=== PATIENT | female | born 1955 | race Caucasian/White ===

== ENCOUNTER 2022-09-09 08:56 | Emergency (ER) | payer MEDICARE, SELFPAY ==
--- NOTE | ~2022-09-09 | XR_ITS ---
EXAMINATION: XR ankle RT min 3V, XR foot RT min 3V DATE: 09/09/2022 09:47 INDICATION: Medial and lateral right foot and ankle pain and swelling post fall 2 days prior TECHNIQUE: 1. Anteroposterior, mortise, additional oblique and lateral view of the right ankle were obtained. 2. Dorsoplantar, two oblique and lateral views of the right foot were obtained. COMPARISON: None. FINDINGS: Alignment of the right foot and ankle is normal. No acute fracture. There is flattening of the articu lar surfaces at the heads of the second metatarsal and more prominently at the third metatarsal consi stent with chronic osteonecrosis (Freiberg's infraction). Mild polyarticular osteoarthritis character ized by mild nonuniform joint space narrowing or tiny marginal osteophytes at multiple joints through out the right foot. Moderate-sized plantar calcaneal spur. Soft tissue swelling about the right ankle both medially and laterally. No ankle joint effusion. IMPRESSION: 1. Soft tissue swelling at the right ankle. No acute osseous abnormality. 2. 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 3. Mild polyarticular osteoarthritis involving multiple joints throughout the right foot. Reviewed, dictated and finalized at location L. IMPRESSION: 1. Soft tissue swelling at the right ankle. No acute osseous abnormality. 2. 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 3. Mild polyarticular osteoarthritis involving multiple joints throughout the r ight foot.
[2022-09-09 09:23] VITALS: BP 119/83; PULSE 77; RESP 16; TEMP 36.9; O2SAT 97
--- NOTE | 2022-09-09 09:39 | ED.LOWEXIN ---
HPI - Extremity Injury (Lower) General Chief Complaint: Extremity Injury, Lower Stated Complaint: rt ankle injury Time Seen by Provider: 09/09/22 09:56 Source: patient Mode of arrival: ambulatory Limitations: no limitations History of Present Illness HPI Narrative: 66-year-old female presented for complaint of right ankle pain and swelling after injury during the night. She states she got up to go to the bathroom and slipped on the floor. She denies falling to the ground. She states she twisted her ankle. She wrapped it with an Ritesh, took Tylenol, and applied ice. Pain is much worse when ambulating. She denies numbness, tingling, weakness in her foot. She has been using a walker. Related Data Allergies Allergy/AdvReac Type Severity Reaction Status Date / Time Sulfa (Sulfonamide Allergy Unknown Nausea Verified 09/09/22 09:25 Antibiotics) Review of Systems Review of Systems: CONSTITUTIONAL: Denies body aches, fever, chills EYES: Denies visual changes ENT: Denies rhinorrhea, congestion CARDIOVASCULAR: Denies chest pain, palpitations, or edema. RESPIRATORY: Denies cough or dyspnea. SKIN: Denies rash, itching, or wounds. MUSCULOSKELETAL: per hPI NEUROLOGIC: Denies headache, numbness, tingling, or weakness. All systems reviewed & are unremarkable except as noted in HPI and below PMFSH Past Medical History Medical History Closed fracture at right wrist or hand level ORIF Right radial fracture Surgical History Surgical History History of right hip replacement Family History Family History Mother Diabetes mellitus Hypertension Sibling Diabetes mellitus Hypertension Father Family history of cardiovascular disease Acute myocardial infarction, Onset Age: 67 Family history of throat cancer Grandparent Family history of malignant neoplasm of breast Other Carcinoma of colon Social History Social History Smoking status: Never smoker Alcohol intake: current Lack of Transportation: No Lack of Food: Never True Current Housing: I Have Housing Concerned About Future Housing: No Difficulty Paying Gas/Electric Bills: No Difficulty Paying for Meds: No Currently Unemployed: No Education: High School Diploma/GED Difficulty w/ Childcare or Family Care: No Comments At time of signature, I have reviewed and agree with nursing past medical, surgical, social and family history unless otherwise noted. Please see nursing chart for further information. There is no relevant family history pertinent to the presenting complaint Exam Narrative: GENERAL: Well-appearing CHEST: Speaks in full sentences. No respiratory distress. HEART: Regular rate and rhythm. Normal and equal peripheral pulses. EXTREMITIES: Right foot has normal strength and sensation, slightly limited range of motion with flexion/extension/rotation at right ankle due to pain with movement. Moderate swelling medially and laterally to ankle, minimal ecchymosis; tender across medial 1st metatarsal and 4-5 metatarsals. No open wounds, or obvious deformity; alignment normal, pulse palpable and equal bilaterally, skin warm, dry, pink. Capillary refill less than 3 seconds. SKIN: Warm, dry, no rash. NEURO: Alert and oriented x3. PSYCH: Normal mood and affect Course Course Emergency Course: Patient is aware of diagnosis, understands and agrees to treatment plan. Anticipatory guidance given. Patient agrees to follow-up as directed and is aware of reasons to seek care at the emergency department. Portions of this record may have been created with voice recognition software Level of Care: Express Care Visit Vital Signs Vital signs: Vital Signs Temperature 98.4 F 09/09/22 09:23 Pulse
== END 2022-09-09 10:18 | disposition home or self-care (01) ==
PROVIDERS: Emergency Provider Nurse Practitioner Family; PCP Physician Assistant
DX: S93.401A Sprain of unspecified ligament of right ankle, initial encounter (principal); S96.911A Strain of unspecified muscle and tendon at ankle and foot level, right foot, initial encounter; W18.40XA Slipping, tripping and stumbling without falling, unspecified, initial encounter; Z96.641 Presence of right artificial hip joint
CPT/HCPCS: 73610; 73630; 99213; G0463

== ENCOUNTER 2023-10-21 08:27 | Emergency (ER) | payer MEDICARE, SELFPAY ==
--- NOTE | ~2023-10-21 | XR_ITS ---
XR ankle LT min 3V, XR foot LT min 3V 10/21/2023 08:55 Indication: Left ankle and foot pain after trauma Procedure: 4 views left ankle and 4 views left foot Comparison: No prior studies for comparison. Findings: There is a large amount of soft tissue swelling surrounding the ankle as well as along the dorsal surface of the midfoot. There is lytic destruction of the midfoot involving the navicular and cuneiforms with overlying soft tissue swelling. Lisfranc joint intact. Osteopenia. There is partial c ollapse of the navicular. Impression: 1: Deformity of the navicular and cuneiforms with erosions and prominent adjacent soft tissue swellin g. Findings may be posttraumatic in nature, although infection/osteomyelitis should be considered in the appropriate clinical setting. Consider further evaluation with MRI with contrast. Reviewed, dictated and finalized at location B. Impression: 1: Deformity of the navicular and cuneiforms with erosions and prominent adjace nt soft tissue swelling. Findings may be posttraumatic in nature, although infe ction/osteomyelitis should be considered in the appropriate clinical setting. C onsider further evaluation with MRI with contrast. Impression: 1: Deformity of the navicular and cuneiforms with erosions and prominent adjace nt soft tissue swelling. Findings may be posttraumatic in nature, although infe ction/osteomyelitis should be considered in the appropriate clinical setting. C onsider further evaluation with MRI with contrast.
[2023-10-21 08:39] VITALS: BP 154/89; PULSE 76; RESP 16; TEMP 37.7; O2SAT 98
--- NOTE | 2023-10-21 08:42 | ED.LOWEXIN ---
HPI - Extremity Injury (Lower) General Chief Complaint: Extremity Injury, Lower Stated Complaint: Injured Ankle Time Seen by Provider: 10/21/23 08:30 Source: patient Mode of arrival: ambulatory Limitations: no limitations History of Present Illness HPI Narrative: Franco is a 68-year-old female patient presenting to the clinic today with complaints of a left ankle and foot injury. Reports that she twisted her left ankle and foot back at the end of July when attempting to get off a treadmill. Re-injured it last night when twisting it on a curb. Has medial and lateral ankle swelling with swelling to the top of her foot as well. Is having pain with bearing weight. Related Data Allergies Allergy/AdvReac Type Severity Reaction Status Date / Time Sulfa (Sulfonamide Allergy Unknown Nausea Verified 09/09/22 09:25 Antibiotics) Review of Systems Review of Systems: Pertinent positives per HPI. Patient denies any fever, chills, rash, headache, visual changes, dizziness, cough, runny nose, sore throat, shortness of breath, chest pain, palpitations, nausea, vomiting, diarrhea, constipation, abdominal pain, or any urinary issues. [facility] Past Medical History Medical History Closed fracture at right wrist or hand level ORIF Right radial fracture Surgical History Surgical History History of right hip replacement Family History Family History Mother Diabetes mellitus Hypertension Sibling Diabetes mellitus Hypertension Father Family history of cardiovascular disease Acute myocardial infarction, Onset Age: 67 Family history of throat cancer Grandparent Family history of malignant neoplasm of breast Other Carcinoma of colon Social History Social History Smoking status: Never smoker Alcohol intake: current Lack of Transportation: No Lack of Food: Never True Current Housing: I Have Housing Concerned About Future Housing: No Difficulty Paying Gas/Electric Bills: No Difficulty Paying for Meds: No Currently Unemployed: No Education: High School Diploma/GED Difficulty w/ Childcare or Family Care: No Comments At the time of my signature, I reviewed and agree with the nursing past medical, surgical, social, and family history. There is no relevant family history pertinent to the patient complaint. Exam Narrative: General: Well-developed, well nourished, in no apparent distress Head: Normocephalic, atraumatic. Cardio: Regular rate and rhythm, s1 and s2 normal, no murmur appreciated. Resp: Clear to auscultation bilaterally, no rhonchi, rales, wheezing or rubs. Musculoskeletal: No deformity, tender to palpation over the lateral and medial ankle, soft tissue swelling over the lateral and medial ankle as well as the dorsal foot, mild tenderness to palpation over the dorsal proximal foot,range of motion limited due to pain and swelling, able to dorsal flex and plantar flex against resistance, pain with valgus and varus without laxity, muscle strength strong and equal, peripheral pulse strong, no cyanosis, sitting in a wheelchair. Course Course Emergency Course: Portions of this record may have been created with voice recognition software. Level of Care: Express Care Visit Vital Signs Vital signs: Vital Signs Temperature 37.7 C H 10/21/23 08:39 Pulse Rate 76 10/21/23 08:39 Respiratory Rate 16 10/21/23 08:39 Blood Pressure 154/89 H 10/21/23 08:39 Pulse Oximetry 98 10/21/23 08:39 Temperature 37.7 C H 10/21/23 08:39 Pulse Rate 76 10/21/23 08:39 Respiratory Rate 16 10/21/23 08:39 Blood Pressure 154/89 H 10/21/23 08:39 Pulse Oximetry 98 10/21/23 08:39 Vital signs reviewed MDM - Extremity Injury (Lower) MDM Narrative
== END 2023-10-21 09:33 | disposition home or self-care (01) ==
PROVIDERS: Emergency Provider Nurse Practitioner Family; PCP Family Medicine
DX: M85.872 Other specified disorders of bone density and structure, left ankle and foot (principal); S93.402A Sprain of unspecified ligament of left ankle, initial encounter; S93.602A Unspecified sprain of left foot, initial encounter; X50.9XXA Other and unspecified overexertion or strenuous movements or postures, initial encounter; Z96.641 Presence of right artificial hip joint
CPT/HCPCS: 29515; 73610; 73630; 99213; G0463

== ENCOUNTER 2024-05-29 09:32 | Outpatient (CLI) | payer MEDICARE, SELFPAY ==
[2024-05-29 13:45] LABS: Basophils Absolute Auto 0.1 K/mm3 (0.0-0.1); Basophils Percent Auto 1.1 % (0.2-1.2); Eosinophils Absolute Auto 0.1 K/mm3 (0-0.3); Eosinophils Percent Auto 1.8 % (0-4.4); Hematocrit 42.1 % (37.0-47.0); Immature Granulocyte Absolute 0.05 K/mm3 (0.00-0.031); Immature Granulocyte Percent A 0.7 % (0-0.5); Lymphocytes Absolute Auto 1.62 K/mm3 (0.9-3.2); Lymphocytes Percent Auto 22.4 % (18.3-44.2); Mean Corpuscular HGB Conc 33.3 g/dl (32-36); Mean Corpuscular Hemoglobin 35.9 pg (26-34); Mean Corpuscular Volume 107.9 fl (80-100); Mean Platelet Volume 10.1 fl (7.4-10.4); Monocytes Absolute Auto 0.6 K/mm3 (0.1-0.6); Monocytes Percent Auto 8.3 % (2.6-8.5); Neutrophils Absolute Auto 4.8 K/mm3 (1.3-6.7); Neutrophils Percent Auto 65.7 % (45.5-73.1); Platelet Count Result 317 k/mm3 (150-375); Red Cell Distribution Width 12.8 % (11.5-14.5); White Blood Count 7.2 K/mm3 (4.5-10.0)
[2024-05-29 14:00] LABS: Alanine Aminotransferase 10 U/L (6-35); Albumin Level 4.3 g/dL (3.5-5.1); Alkaline Phosphatase 98 U/L (38-126); Anion Gap 11 mmol/L (4-12); Aspartate Amino Transferase 31 U/L (14-36); Bilirubin,Total 0.6 mg/dL (0.2-1.3); Blood Urea Nitrogen 18 mg/dL (7-17); Calcium 10.1 mg/dL (8.4-10.2); Carbon Dioxide 26 mmol/L (22-30); Chloride 98 mmol/L (98-107); Cholesterol 272 mg/dL (0-200); Estimated Glomerular Filt Rate > 60; Glucose 88 mg/dL (65-110); HDL Direct 56 mg/dL; Potassium 4.9 mmol/L (3.4-5.0); Sodium 135 mmol/L (137-145); Triglycerides 214 mg/dL (<150)
[2024-05-29 14:11] LABS: LDL Cholesterol Direct 163 mg/dL
[2024-05-29 14:13] LABS: Platelet Estimate Adequate (Adequate)
[2024-05-29 14:14] LABS: Macrocytosis 2+ (NORMAL); Schistocytes None Seen
[2024-05-29 19:31] LABS: Total Triiodothyronine (T3) 1.41 NG/ML (0.97-1.69)
--- OUTSIDE RECORDS SUMMARY | 2024-05-31 16:52 | XMS_ITS | Encounter Summary ---
Author Organization [facility] Address [address] [place] [address] Care Team Providers Care Form Setter [employer] Forms Name Role Phone Whitney Martinez MD Unavailable Sherif Nation MD Primary Care Provider [phone] Encounter Details Date Type Department Care Team (Late st Contact Info) Description 03/01/2019 [facility] Outpatient Visit [facility] Orthopedics - Radiology [address] [place] [id number] Document, Scanned Social History Tobacco Use Types Packs/Day Years Used Date Smoking Tobacco: Never Smokeless Tobacco: Never Alcohol Use Standard Drinks/Week Comments Yes 3 (1 standard drink = 0.6 oz pur e alcohol) Sex and Gender Information Value Date Recorded Sex Assigned at Female 10/20/2020 3:30 PM CDT Gender Identity Female 10/20/2020 3:30 PM CDT Sexual Orientation Straight 10/20/2020 3: 30 PM CDT documented as of this encounter Plan of Treatment Not on file documented as of this encounter Visit Diagnoses Not on filedocumented in this encounter Care Teams Form Setter [employer] Forms Relationship Specialty Start Date End Date Sherif Nation MD [address] [place] [id number] PCP - General Family Medicine 02/27/19 Whitney Martinez MD Orthopedic Surgery 02/27/19 documented as of this encounter
--- OUTSIDE RECORDS SUMMARY | 2024-05-31 16:52 | XMS_ITS | Patient Health Summary ---
Author Organization [facility] Address [address] [place] [address] Care Team Providers Care Power Nut Runner Operator Name Role Phone Whitney Martinez MD Unavailable Sherif Nation MD Primary Care Provider [phone] Note from [facility],non-owned Affiliates and Associated Physician Practices is amultiple site organization consisting of ambulatory clinics and hospital sitesin [place], [place], [place] and [place]. This disclosure is being madepursuant to the Care Everywhere program and may not contain all information available regarding this patient. Last updated 18.[facility] Allergies * Sulfa Drugs(GI Discomfort) Medications * Be aware that medications may not be up to date on this document. Alwaysverify current medications with the patient. * metoprolol succinate XL 24hr (TOPROL XL) 100 MG tablet Take 100 mg by mouth 2 times daily * lisinopril (PRINIVIL; ZESTRIL) 40 MG tablet Take 40 mg by mouth once daily * levothyroxine (SYNTHROID) 125 MCG tablet Take 125 mcg by mouth daily before breakfast * cyclobenzaprine (FLEXERIL) 10 MG tablet Take 10 mg by mouth 3 times daily as needed for Muscle Spasms * acetaminophen (TYLENOL) 325 MG tablet(Started 10/29/2020) Take 2 (two) tablets by mouth every 6 hours as needed Maximum allowable Acetaminophen amount = 4 Grams (4000 mg) / 24 hours. * citalopram (CELEXA) 10 MG tablet(Started 11/10/2020) Take 10 mg by mouth once daily * celecoxib (CELEBREX) 200 MG capsule(Started 12/28/2020) TAKE 1 CAPSULE BY MOUTH TWICE DAILY Active Problems Problem Noted Date Diagnosed Date Closed subcapital fracture o f femur, right, initial encounter 10/23/2020 Closed fracture of right distal radius 9 Hypertensive urgency 03/02/2019 Social History Tobacco Use Types Packs/Day Years Used Date Smoking Tobacco: Never Smokeless Tobacco: Never Alcohol Use Standard Drinks/Week Comments Yes 3 (1 standard drink = 0.6 oz pur e alcohol) every once in awhile Sex and Gender Information Value Date Recorded Sex Assigned at Female 10/20/2020 3:30 PM CDT Gender Identity Female 10/20/2020 3:30 PM CDT Sexual Orientation Straight 10/20/2020 3: 30 PM CDT Last Filed Vital Signs Vital Sign Reading Time Taken Comments Blood Pressure 132/83 10/29/2020 12:55 PM CDT Pulse 67 10/29/2020 12:55 PM CDT Temperature 36.5 ??C (97.7 ??F) 10/29/2020 10:58 AM C DT Respiratory Rate 16 10/29/2020 12:55 PM CDT Oxygen Saturation 91% 10/29/2020 10:58 AM CDT Inhaled Oxygen Concentration - - Weight 78.5 kg (173 lb) 10/28/2020 11:32 AM CDT Height 170.2 cm (5' 7 ) 10/28/2020 11:32 AM CDT Body Mass Index 27.1 10/28/2020 11:32 AM CDT Medical Devices Implanted Type Area Clinical Cytogenetics Director Device Identifier Shelf Expiration Date Model / Serial / Lot Peg Fx 2.2mm 16mm Rds Dist Volr Crsslck Implanted:Qty: 3 on 05/07/2019 by Whitney Martinez MD at [facility] Right: Wrist [employer] [id number] / / Peg Fx 2.2mm 18mm Rds Dist Volr Lck Smth Implanted:Qty: 2 on 05/07/2019 by Whitney Martinez MD at [facility] Right: Wrist [employer] [id number] DUPLICATE / / Peg Fx 2.2mm 20mm Rds Dist Volr Lck Smth Implanted:Qty: 2 on 05/07/2019 by Whitney Martinez MD at [facility] Right: Wrist [employer] [id number] / / Screw 2.7mm 13mm Nonlock Lopro Rds Dist Implanted:Qty: 1 on 05/07/2019 by Whitney Martinez MD at [facility] Right: Wrist [employer] [id number] / / Screw 2.7mm 14mm Lopro Nonster Bone Lf Implanted:Qty: 1 on 05/07/2019 by Whitney Martinez MD at [facility] Right: Wrist [employer] [id number] / / Screw 2.7mm 16mm Lopro Nonster Bone Lf Implanted:Qty: 1 on 05/07/2019 by Whitney Martinez MD at [facility] Right: Wrist [employer] [id number] / / Plate Lopro Crsslck Rds Rt Dist Volr 51 Implanted:Qty: 1 on 05/07/2019 by Whitney Martinez MD at [facility] Right: Wrist [employer] [id number] / / Modular Shell 52mm Implanted:Qty: 1 on 10/28/2020 by Marc Humphreys IV, MD at [facility] Right: Hip [employer] 07/08/2030 [id number] / / [id number] Acetabular Liner +4mm 36mm Implanted:Qty: 1 on 10/28/2020 by Marc Humphreys IV, MD at [facility] Right: Hip [employer] 06/10/2030 [id number] / / [id number] Stm Fem 150mm Hip 4 Lat Ofst Intgr-+ Implanted:Qty: 1 on 10/28/2020 by Marc Humphreys IV, MD at [facility] Right: Hip [employer] 05/21/2027 [id number] / / [id number] Head Fem +8mm 12/14 36mm Hip Oxnm Implanted:Qty: 1 on 10/28/2020 by Marc Humphreys IV, MD at [facility] Right: Hip [employer] 08/16/2030 [id number] / / [id number] Explanted Type Area Clinical Cytogenetics Director Device Identifier Shelf Expiration Date Model / Serial / Lot Screw 2.7mm 22mm Nonlock Lopro Crsslck Explanted:Qty: 1 on 05/07/2019 by Whitney Martinez MD at [facility] Right: Wrist [employer] [id number] / / Wire K 1.6mm Ss Fx Nonster Explanted:Qty: 3 on 05/07/2019 by Whitney Martinez MD at [facility] Right: Wrist [employer] [id number] / / Procedures * XR PELVIS W RIGHT HIP 1VW(Performed 11/17/2020) Performed for History of total hip arthroplasty, right * OT EVAL AND TREAT(Performed 10/28/2020) * FL CHRISTIE SURGERY(Performed 10/28/2020) Performed for Pain * NEURAXIAL BLOCK(Performed 10/28/2020) * CO TOTAL HIP REPLACEMENT(Performed 10/28/2020) * EKG 12-LEAD(Performed 10/24/2020) Performed for Pre-op evaluation * COMPREHENSIVE METABOLIC PANEL(Performed 10/24/2020) Performed for Pre-op evaluation * CBC W AUTO DIFFERENTIAL(Performed 10/24/2020) Performed for Pre-op evaluation * XR HIP RIGHT 2VW OR MORE(Performed 10/23/2020) Performed for Closed subcapital fracture of femur, right, initial encounter ([facility]) * MRI FEMUR RIGHT WO CONTRAST(Performed 10/17/2020) Performed for Strain of unspecified muscles, fascia and tendons at thigh level, right thigh, initial encounter * XR WRIST RIGHT 3VW OR MORE(Performed 05/17/2019) Performed for Closed Colles' fracture of right radius with malunion, subsequent encounter * IMAGING/RADIOLOGY/XRAY RESULTS ORDER(Performed 05/11/2019) * BASIC METABOLIC PANEL (CALCIUM TOTAL)(Performed 05/08/2019) Performed for Hypertensive urgency * PT EVAL AND TREAT(Performed 05/07/2019) * OT EVAL AND TREAT(Performed 05/07/2019) * XR WRIST RIGHT 2VW(Performed 05/07/2019) Performed for Closed fracture of distal end of right radius, unspecified fracture morphology, initial encounter * OPEN REDUCTION INTERNAL FIXATION (ORIF) WRIST/DISTAL RADIUS(Performed 05/07/2019) Performed for RIGHT DISTAL RADIUS FRACTURE S52.501A * PERIPHERAL BLOCK(Performed 05/07/2019) * XR WRIST RIGHT 3VW OR MORE(Performed 05/03/2019) Performed for Closed Colles' fracture of right radius with routine healing, subsequent encounter * CARDIAC EKG ORDER(Performed 03/06/2019) * CARDIAC RHYTHM STRIP ORDER(Performed 03/05/2019) * EKG 12-LEAD(Performed 03/02/2019) Performed for Hypertensive urgency * XR CHEST 1VW PORTABLE(Performed 03/02/2019) Performed for Hypertensive urgency * COMPREHENSIVE METABOLIC PANEL(Performed 03/02/2019) * CBC W AUTO DIFFERENTIAL(Performed 03/02/2019) * EKG 12-LEAD(Performed 03/02/2019) Performed for Essential hypertension, Preop examination * ED CRITICAL CARE(Performed 03/02/2019) Results * XR PELVIS W RIGHT HIP 1VW (11/17/2020 11:08 AM CDT) Anatomical Region Laterality Modality Pelvis Computed Radiogr aphy Narrative 11/17/2020 11:07 AM CDT Tabatha Peralta, RT(R) ? 11/24/2020 11:33 AM See progress notes for results Marc Humphreys IV, MD DIAGNOSTIC IMAGING O RDERABLES * FL CHRISTIE SURGERY (10/28/2020 2:30 PM CDT) Anatomical Region Laterality Modality Radiographic Misa ging 10/28/2020 3:53 PM CDT Narrative 10/28/2020 3:50 PM CDT FLUOROSCOPY: Less than 1 hour of intraprocedural fluoroscopy was utilized. No radiologist was present. *Reading Radiologist: Andres Richard on 10/28/2020 at 3:53 PM Procedure Note Andres Richard MD - 10/28/2020 FLUOROSCOPY: Less than 1 hour of intraprocedural fluoroscopy was utilized. No radiologist was present. *Reading Radiologist: Andres Richard on 10/28/2020 at 3:53 PM Marc Humphreys IV, MD FLUOROSCOPY ORDERABL ES * Neuraxial Block (10/28/2020 1:43 PM CDT) Narrative Paul Mena APRN-CRNA - 10/28/2020 1:43 PM CDT Paul Mena APRN-CRNA ? 10/28/2020 ??1:46 PM Neuraxial Block Note ?? Pre-Procedure: ?? Procedure Name: ??Neuraxial Block Patient Location: ??OR Indications: ??at surgeon's request Pre-Anesthetic Checklist: ??Patient identified, IV Checked, Risks and benefits discussed, Surgical consent verified, Monitors and equipment, Site examined, Pre-op evaluation done, Time-out performed, Informed consent obtained, Questions answered/anesthesia questions answered and Allergies reviewed Anticoagulation/ Anti-thrombosis status confirmed? ??Yes Supplemental O2: ??face mask Monitors: ??BP, continuous pluse ox, End tidal CO2 and EKG Patient Condition: ??sedated, meaningful contact maintained throughout procedure Procedure: ?? Block Type: ??Spinal Prep: ??Betadine Sterile Field: ??mask, cap/hat, sterile established and sterile gloves Approach: ??midline Spinal Block: ?? Needle Type: ??spinal needle Needle Gauge: ??27 Placement Site: ??L3-4 Number of Attempts: ??1 CSF: ??free flow, ?? aspiration before injection Spinal Local Anesthetics Used?: see anesthesia record Degree of difficulty: ??none Procedure Tolerance: ??tolerated well Sensory Level: ??T10 Motor Blockade: ??Yes Position post procedure: ??supine Vital Signs: ??Vital signs monitored and stable throughout. ??See anesthesia record for details. Start Time: ??10/28/2020 1:12 PM End Time: ??10/28/2020 1:19 PM Total Time: ??7 Staff: ?? Anesthesia Provider: ??Paul Mena APRN-CRNA ?? - ?? performed the procedure Dionne Sheets MD GENERAL ANESTHESI A ORDERABLES * EKG 12-LEAD (10/24/2020 11:19 AM CDT) Only the most recent of2 resultswithin the time period is included. Ventricular Rate 70 BPM [facility] Atrial Rate 70 BPM [facility] P-R Interval 168 ms [facility] QRS Duration ms 88 ms [facility] Q-T Interval ms 414 ms [facility] QTC Calculation (Bezet) 447 ms [facility] Calculated P [place] -25 degrees [facility] Calculated R [place] -25 degrees [facility] Calculated T [place] -2 degrees [facility] Interpretation EKG Normal sinus rhythm Normal ECG When compared with ECG of 02-MAR-2019 11:42, No significant change was found Confirmed by CECY DAO MD ([id number]) on 10/24/2020 10:45:39 PM [facility] 10/24/2020 11:1 9 AM CDT 10/24/2020 10:45 PM CDT Marii Child DO ECG ORDERABLES [facility] * (ABNORMAL) CBC W AUTO DIFFERENTIAL (10/24/2020 10:59 AM CDT) Only the most recent of2 resultswithin the time period is included. Pathologist [facility] WBC 8.8 4.4 - 10.7 x10E9/L 10/24/2020 11:11 AM CDT [facility] WBC Corrected 10/24/2020 11:11 AM CDT [facility] RBC 4.06 3.80 - 5.20 x10E12/L 10/24/2020 11:11 AM CDT [facility] Hemoglobin 14.0 12.0 - 15.6 gm/dL 10/24/2020 11:11 AM CDT [facility] Hematocrit 41.0 35.9 - 45.5 % 10/24/2020 11:11 AM CDT [facility] MCV 101.0(H) 80.7 - 98.3 fl 10/24/2020 11:11 AM CDT [facility] MCH 34.5(H) 26.7 - 34.0 pg 10/24/2020 11:11 AM CDT [facility] MCHC 34.1 30.8 - 35.9 gm/dL 10/24/2020 11:11 AM CDT [facility] Platelet Count 229 153 - 416 x10E9/L 10/24/2020 11:11 AM CDT [facility] RDW-CV 11.4(L) 12.1 - 14.9 % 10/24/2020 11:11 AM CDT [facility] MPV 9.5 9.4 - 12.9 fl 10/24/2020 11:11 AM CDT [facility] Neutrophils % 76.9(H) 44.0 - 73.0 % 10/24/2020 11:11 AM CDT [facility] Lymphocytes % 12.4(L) 20.0 - 43.0 % 10/24/2020 11:11 AM CDT [facility] Monocytes % 6.6 5.0 - 13.0 % 10/24/2020 11:11 AM CDT [facility] Eosinophils % 2.9 0.0 - 6.0 % 10/24/2020 11:11 AM CDT [facility] Basophils % 0.9 0.0 - 2.0 % 10/24/2020 11:11 AM CDT [facility] Immature Granulocytes 0.3 0 - 1 % 10/24/2020 11:11 AM CDT [facility] Neutrophil Absolute 6.74 2.01 - 7.14 x10E9/L 10/24/2020 11:11 AM CDT [facility] Lymphocytes Absolute 1.09 1.07 - 3.94 x10E9/L 10/24/2020 11:11 AM CDT [facility] Monocytes Absolute 0.58 0.26 - 1.07 x10E9/L 10/24/2020 11:11 AM CDT [facility] Eosinophils Absolute 0.25 0 - 0.47 x10E9/L 10/24/2020 11:11 AM CDT [facility] Basophils Absolute 0.08 0 - 0.08 x10E9/L 10/24/2020 11:11 AM CDT [facility] Immature Granulocytes Absolute 0.03 0.00 - 0.06 x10E9/L 10/24/2020 11:11 AM CDT [facility] nRBC Auto 0 /100 WBC 10/24/2020 11:11 AM CDT [facility] Blood BLOOD SPECIMEN / Unknown Venipuncture / Unknown 10/24/2020 10:59 AM CDT 10/24/2020 11:07 AM CDT Piper Jacome BURIAL VAULT DELIVERER AND INSTALLER-ACADEMIC HOSPITALIST LAB - HEMATO LOGY ORDERABLES [facility] [address] [place] [address] * (ABNORMAL) COMPREHENSIVE METABOLIC PANEL (10/24/2020 10:59 AM CDT) Only the most recent of2 resultswithin the time period is included. Glucose 109(H) 70 - 105 mg/dL 10/24/2020 11:23 AM CDT [facility] Sodium 136 136 - 145 mmol/L 10/24/2020 11:23 AM CDT [facility] Potassium 4.6 3.5 - 5.1 mmol/L 10/24/2020 11:23 AM CDT [facility] Chloride 103 98 - 107 mmol/L 10/24/2020 11:23 AM CDT [facility] CO2 21(L) 23 - 31 mmol/L 10/24/2020 11:23 AM CDT [facility] Calcium 10.1 8.4 - 10.4 mg/dL 10/24/2020 11:23 AM CDT [facility] Anion Gap 12 8 - 18 mmol/L 10/24/2020 11:23 AM CDT [facility] BUN 13 9.8 - 20.1 mg/dL 10/24/2020 11:23 AM CDT [facility] Creatinine 0.71 0.57 - 1.11 mg/dL 10/24/2020 11:23 AM CDT [facility] Alkaline Phosphatase 118 40 - 150 U/L 10/24/2020 11:23 AM CDT [facility] ALT 12 0 - 61 U/L 10/24/2020 11:23 AM CDT [facility] AST 14 5 - 34 U/L 10/24/2020 11:23 AM CDT [facility] Protein Total 6.5 6.4 - 8.3 gm/dL 10/24/2020 11:23 AM CDT [facility] Albumin 3.7 3.2 - 4.6 gm/dL 10/24/2020 11:23 AM CDT [facility] Bilirubin Total 0.9 0.2 - 1.2 mg/dL 10/24/2020 11:23 AM CDT [facility] eGFR by MDRD >60 >60 mL/min/1.7 3m2 10/24/2020 11:23 AM CDT [facility] eGFR by MDRD >60 >60 mL/min/1.7 3m2 10/24/2020 11:23 AM CDT [facility] Blood BLOOD SPECIMEN / Unknown Venipuncture / Unknown 10/24/2020 10:59 AM CDT 10/24/2020 11:07 AM CDT Piper Jacome APRN-ACADEMIC HOSPITALIST LAB - CHEMIS TRY ORDERABLES [facility] [address] [place] [address] * XR HIP RIGHT 2VW OR MORE (10/23/2020 1:07 PM CDT) Anatomical Region Laterality Modality Pelvis, Lower Extremity Computed Radiography Narrative 10/23/2020 1:08 PM CDT Tabatha Peralta, RT(R) ? 10/23/2020 ??2:38 PM See progress notes for results Darrick Tripp APRN-ACADEMIC HOSPITALIST DIAGNOSTIC IMAG ING ORDERABLES * MRI FEMUR RIGHT WO CONTRAST (10/17/2020 11:52 AM CDT) Anatomical Region Laterality Modality Lower Extremity Magnetic Resonan ce 10/17/2020 1:36 PM CDT Impressions 10/17/2020 4:02 PM CDT COMPLETE SUBCAPITAL RIGHT FEMORAL NECK FRACTURE WITH A VARUS DEFORMITY. RIGHT GRADE 1 ADDUCTOR MUSCLE GROUP STRAIN. Findings called to the nurse practitioner caring for the patient, Shay Durant, at 1:42 PM on 10/17/2020. Edited by Sandra Aguilar on 10/17/2020 2:02 PM *Reading Radiologist: Collins Kahn on 10/17/2020 at 4:02 PM Narrative 10/17/2020 4:02 PM CDT MRI RIGHT FEMUR WITHOUT CONTRAST CLINICAL INDICATION: Severe worsening right thigh pain and limited range of motion. Twisting injury to the right thigh a few weeks ago. COMPARISON: None available. TECHNIQUE: Multiplanar multisequence MR imaging of the right femur was performed without contrast. The left side is included for comparison on the axial and coronal sequences. FINDINGS: Complete subcapital right femoral neck fracture with a varus deformity. Portions of osteolysis have occurred at the right femoral neck compatible with subacute pathology. Moderate bone marrow edema noted at the fracture site. Moderate-sized right hip joint effusion. The mid and distal portions of the right femur are intact. No other sites of altered osseous signal. Increased T2 signal consistent with grade 1 strain involving the right adductor muscle group. No other sites of altered muscle signal. Intramuscular fascia within normal limits. No mass lesions. Neurovascular structures within normal limits. No acute tendon pathology. Visualized ligamentous and capsular components of the right hip joint intact. Procedure Note Collins Kahn MD - 10/17/2020 MRI RIGHT FEMUR WITHOUT CONTRAST CLINICAL INDICATION: Severe worsening right thigh pain and limited range of motion. Twisting injury to the right thigh a few weeks ago. COMPARISON: None available. TECHNIQUE: Multiplanar multisequence MR imaging of the right femur was performed without contrast. The left side is included for comparison on the axial and coronal sequences. FINDINGS: Complete subcapital right femoral neck fracture with a varus deformity. Portions of osteolysis have occurred at the right femoral neck compatible with subacute pathology. Moderate bone marrow edema noted at the fracture site. Moderate-sized right hip joint effusion. The mid and distal portions of the right femur are intact. No other sites of altered osseous signal. Increased T2 signal consistent with grade 1 strain involving the right adductor muscle group. No other sites of altered muscle signal. Intramuscular fascia within normal limits. No mass lesions. Neurovascular structures within normal limits. No acute tendon pathology. Visualized ligamentous and capsular components of the right hip joint intact. IMPRESSION COMPLETE SUBCAPITAL RIGHT FEMORAL NECK FRACTURE WITH A VARUS DEFORMITY. RIGHT GRADE 1 ADDUCTOR MUSCLE GROUP STRAIN. Findings called to the nurse practitioner caring for the patient, Shay Durant, at 1:42 PM on 10/17/2020. Edited by Sandra Aguilar on 10/17/2020 2:02 PM *Reading Radiologist: Collins Kahn on 10/17/2020 at 4:02 PM Provider Unknown MR ORDERABLES * XR WRIST RIGHT 3VW OR MORE (05/17/2019 10:59 AM GENERAL FOREMAN) Only the most recent of2 resultswithin the time period is included. Anatomical Region Laterality Modality Wrist / Hand Radiographic Misa ging Narrative 05/17/2019 11:00 AM GENERAL FOREMAN Iesha De Guzman L, RT(R) ? 05/17/2019 11:27 AM Please see office note for result. Whitney Martinez MD DIAGNOSTIC IMAGING O RDERABLES * IMAGING RADIOLOGY XRAY RESULTS ORDER (05/11/2019 1:55 AM GENERAL FOREMAN) Anatomical Region Laterality Modality Other Narrative 05/11/2019 1:55 AM GENERAL FOREMAN Ordered by an unspecified provider. Scanned Document IMAGING * (ABNORMAL) BASIC METABOLIC PANEL (CALCIUM TOTAL) (05/08/2019 8:56 AM GENERAL FOREMAN) Glucose 100 70 - 105 mg/dL 05/08/2019 9:24 AM GENERAL FOREMAN [facility] Sodium 137 136 - 145 mmol/L 05/08/2019 9:24 AM GENERAL FOREMAN [facility] Potassium 3.7 3.5 - 4.7 mmol/L 05/08/2019 9:24 AM GENERAL FOREMAN [facility] Chloride 104 98 - 107 mmol/L 05/08/2019 9:24 AM GENERAL FOREMAN [facility] CO2 25 23 - 31 mmol/L 05/08/2019 9:24 AM GENERAL FOREMAN [facility] Calcium 9.1 8.4 - 10.4 mg/dL 05/08/2019 9:24 AM GENERAL FOREMAN [facility] Anion Gap 8 8 - 16 mmol/L 05/08/2019 9:24 AM GENERAL FOREMAN [facility] BUN 7(L) 9.8 - 20.1 mg/dL 05/08/2019 9:24 AM GENERAL FOREMAN [facility] Creatinine 0.68 0.57 - 1.11 mg/dL 05/08/2019 9:24 AM GENERAL FOREMAN [facility] eGFR by MDRD >60 >60 mL/min/1.7 3m2 05/08/2019 9:24 AM GENERAL FOREMAN [facility] eGFR by MDRD >60 >60 mL/min/1.7 3m2 05/08/2019 9:24 AM GENERAL FOREMAN [facility] Blood BLOOD SPECIMEN / Unknown Lab Venipuncture / Unknown 05/08/2019 8:56 AM GENERAL FOREMAN 05/08/2019 9:07 AM GENERAL FOREMAN Luis E Sewell B[employer]IAL VAULT DELIVERER AND INSTALLER-ACADEMIC HOSPITALIST LAB - CHEMISTRY ORDERABLES [facility] [address] [place] [address] * XR WRIST RIGHT 2VW (05/07/2019 1:00 PM GENERAL FOREMAN) Anatomical Region Laterality Modality Wrist / Hand Radiographic Misa ging 05/07/2019 2:48 PM GENERAL FOREMAN Narrative 05/07/2019 2:51 PM GENERAL FOREMAN EXAM: ??Right wrist HISTORY: Preoperative evaluation COMPARISON: 05/03/2019 FINDINGS: 5 intraoperative views of the right wrist demonstrate placement of a anterior plate and screw device over the distal right radius with the fracture remains fracture fragments in anatomic alignment. Detail is limited. 45 seconds of fluoroscopy time was utilized for this examination. Reading Radiologist: Venron Franco MD on 05/07/2019 at 2:51 PM Procedure Note Vernon Franco MD - 05/07/2019 EXAM: Right wrist HISTORY: Preoperative evaluation COMPARISON: 05/03/2019 FINDINGS: 5 intraoperative views of the right wrist demonstrate placement of a anterior plate and screw device over the distal right radius with the fracture remains fracture fragments in anatomic alignment. Detail is limited. 45 seconds of fluoroscopy time was utilized for this examination. Reading Radiologist: Vernon Franco MD on 05/07/2019 at 2:51 PM Whitney Martinez MD DIAGNOSTIC IMAGING O RDERABLES * Peripheral Nerve Block (05/07/2019 10:25 AM GENERAL FOREMAN) Narrative Leonides Kohler, DO - 05/07/2019 10:25 AM GENERAL FOREMAN Leonides Kohler, DO ? 05/07/2019 10:28 AM Peripheral ??Nerve Block ?? Procedure: Peripheral Nerve Block Patient Location: ??Pre-op Preprocedure Section: ?? Indications: at patient's request, postop pain management and procedure for pain. Pre-anesthetic Checklist: Patient identified, IV Checked, Site examined and clear, Risks and benefits discussed, Surgical consent verified, Monitors and equipment, Time-out performed, Informed consent obtained, Pre-op evaluation done, Questions answered/anesthesia questions answered, Allergies reviewed and Removal hand/wrist jewelry Monitors: BP, Pulse Ox and EKG. Patient Condition: ??sedated, meaningful contact maintained throughout procedure Patient Position: sitting Patient Sedated? ??Nursing documentation on JUL ? Sedation Type: ??moderate ? Sedation Agents (Manual): versed Procedure Section ?? Laterality: right Block Performed: ??axillary Prep: ??Chloraprep Strerile Field: gloves and hat/cap Needle Type: ??Echogenic insultaed Needle Gauge: ??22 Needle Length: ??90 mm Catheter?No Ultrasound Guided? ?? Yes ? Technique: ??in plane ? Visualization: ??Preliminary scan performed, Important anatomical structures identified, Needle tip visualized throughout the procedure, Target identified, No intraneural or intravascular puncture occurred, Ultrasound image in chart, Local visualized surrounding nerve on ultrasound and Hydrodissection utilized Injection was made incrementally with constant monitoring and aspirations every 5 mL's Injection Assessment: ?? Slow fractionated injection Block Agents or Additives used? No Procedure Tolerance: tolerated well Assessment: completed Procedure Start Time: 05/07/2019 10:18 AM. Procedure End Time: 05/07/2019 10:22 AM. Procedure Total Time: 4 ??minutes. Staff Section ?? Anesthesia Provider: Leonides Kohler DO, Performed the procedure Leonides Kohler DO GENERAL ANESTHESIA O RDERABLES * CARDIAC EKG ORDER (03/06/2019 8:26 PM CDT) Narrative 03/06/2019 8:26 PM CDT Ordered by an unspecified provider. Scanned Document CARDIAC SERVICES ORD ERABLES * CARDIAC RHYTHM STRIP ORDER (03/05/2019 9:30 PM CDT) Narrative 03/05/2019 9:30 PM CDT Ordered by an unspecified provider. Scanned Document CARDIAC SERVICES ORD ERABLES * XR CHEST 1VW PORTABLE (03/02/2019 11:55 AM CDT) Anatomical Region Laterality Modality Chest Radiographic Misa ging 03/02/2019 12:1 6 PM CDT Impressions 03/02/2019 12:16 PM CDT No acute disease. Reading Radiologist: Viridiana Armstrong MD on 03/02/2019 at 12:16 PM Narrative 03/02/2019 12:16 PM CDT AP Portable Chest Indication: Hypertension Findings: A single portable view of the chest shows the lungs are clear. Mediastinal contour and heart size are within normal limits. Pulmonary vascularity is unremarkable. Procedure Note Viridiana Armstrong MD - 03/02/2019 AP Portable Chest Indication: Hypertension Findings: A single portable view of the chest shows the lungs are clear. Mediastinal contour and heart size are within normal limits. Pulmonary vascularity is unremarkable. IMPRESSION No acute disease. Reading Radiologist: Viridiana Armstrong MD on 03/02/2019 at 12:16 PM Luis Osman MD DIAGNOSTIC IMAGING O RDERABLES * Critical Care (03/02/2019 11:42 AM CDT) Narrative Luis Osman MD - 03/02/2019 11:42 AM CDT Luis Osman MD ? 03/02/2019 ??5:48 PM Critical Care Performed by: Luis Osman MD Authorized by: Luis Osman MD Critical care provider statement: ??Critical care time (minutes): ??35 ??Critical care time was exclusive of: ??Separately billable procedures and treating other patients ??Critical care was necessary to treat or prevent imminent or life-threatening deterioration of the following conditions: hypertensive emergency. ??Critical care was time spent personally by me on the following activities: ??Development of treatment plan with patient or surrogate, discussions with consultants, discussions with primary provider, evaluation of patient's response to treatment, examination of patient, obtaining history from patient or surrogate, ordering and performing treatments and interventions, ordering and review of laboratory studies, ordering and review of radiographic studies, re-evaluation of patient's condition, review of old charts and pulse oximetry Luis Osman MD PROCEDURE/MINOR SURG ICAL ORDERABLES Care Teams Power Nut Runner Operator Relationship Specialty Start Date End Date Sherif Nation MD [address] [place] [phone] PCP - General Family Medicine 02/27/19 Whitney Martinez MD Orthopedic Surgery 02/27/19
--- OUTSIDE RECORDS SUMMARY | 2024-05-31 16:52 | XMS_ITS | Encounter Summary ---
Author Organization [facility] [employer] Address [address] [place] [address] Care Team Providers Care Group Home Paraprofessional Name Role Phone Whitney Martinez MD Unavailable Sherif Nation MD Primary Care Provider +1- [phone] Reason for Visit * Reason Onset Date Comments Surgery Rescheduled 03/06/2019 Encounter Details Date Type Department Care Team (Late st Contact Info) Description 03/06/2019 Telephone [facility] [employer] Orthopedics [address] [facility], [facility] [address] [place] [address] Whitney Martinez MD [facility] [address] [phone] Surgery Rescheduled Social History Tobacco Use Types Packs/Day Years [...] PM CDT documented as of this encounter Miscellaneous Notes * Telephone Encounter - Manzo Hannah - 03/09/2019 8:58 AM CDT Patient is calling back to inform Dr. Martinez that her blood pressure was 200/100 this morning at 8:00am. She spoke to her PCP and was advised not to have surgery this afternoon. The patient will reachout to the surgery center to inform them as well. * Telephone Encounter - Whitney Martinez MD - 03/06/2019 1:19 PM CDT Thank you, I returned her call. * Telephone Encounter - Camila Rodriguez - 03/06/2019 1:09 PM CDT Who is calling? Self What is the reason for call? Call back to reschedule surgery. Expected Response from the Clinic? Call back documented in this encounter Plan of Treatment Not on file documented as of this encounter Visit Diagnoses Not on filedocumented in this encounter Care Teams Group Home Paraprofessional Relationship Specialty Start Date End Date Sherif Nation MD [address] [place] [phone] PCP - General Family Medicine 02/27/19 Whitney Martinez MD Orthopedic Surgery 02/27/19 documented as of this encounter
--- OUTSIDE RECORDS SUMMARY | 2024-05-31 16:52 | XMS_ITS | Referral Summary ---
Author Organization [facility] [employer] Address [address] [facility] [place] [address] Care Team Providers Care Pharmacist Helper Name Role Phone Whitney Martinez MD Unavailable Sherif Nation MD Primary Care Provider +1- [phone] Source Comments [facility],non-owned Affiliates and Associated Physician Practices is amultiple site organization consisting of ambulatory clinics and hospital sitesin [place], [place], [place] and [place]. This disclosure is being madepursuant to the Care Everywhere program and may not contain all information available regarding this patient. Last updated 18.[facility] [employer] Allergies Active Allergy Reactions Criticality Noted Date Comments Sulfa Drugs GI Discomfort 02/27/2019 Medications * Be aware that medications may not be up to date on this document. Alwaysverify current medications with the patient. Medication Sig Dispensed Refills Start Date End Date Status metoprolol succinate XL 24hr (TOPROL XL) 100 MG tablet Take 100 mg by mouth 2 times daily Active lisinopril (PRINIVIL; ZESTRIL) 40 MG tablet Take 40 mg by mouth once daily Active levothyroxine (SYNTHROID) 125 MCG tablet Take 125 mcg by mouth daily before breakfast Active cyclobenzaprine (FLEXERIL) 10 MG tablet Take 10 mg by mouth 3 times daily as needed for Muscle Spasms Active acetaminophen (TYLENOL) 325 MG tablet Take 2 (two) tablets by mouth every 6 hours as needed Maximum allowable Acetaminophen amount = 4 Grams (4000 mg) / 24 hours. 10/29/2020 Active citalopram (CELEXA) 10 MG tablet Take 10 mg by mouth once daily 11/10/2020 Active celecoxib (CELEBREX) 200 MG capsule TAKE 1 CAPSULE BY MOUTH TWICE DAILY 60 capsule 12/28/2020 Active Active Problems Problem Noted Date Diagnosed Date [...] Mass Index 27.1 10/28/2020 11:32 AM CDT Functional Status Functional Status Response Date of Assess ment Is person deaf or have serious hearing difficult y? No 10/29/2020 Is person blind or have serious difficulty seein g? No 10/29/2020 Does person have serious dif ficulty walking/climbing stairs? Yes 10/29/2020 Does person have difficulty dressing/bathing? No 10/29/2020 Does person have difficulty doing errands alone? Yes 10/29/2020 Cognitive Status Response Date of Assessm ent Does person have difficulty concentrating/remembering/making decisions? No 10/29/2020 Plan of Treatment Not on file Medical Devices Implanted Type Area Yard Coupler Device Identifier Shelf Expiration Date Model / Serial / Lot Peg Fx 2.2mm 16mm Rds Dist Volr Crsslck Implanted:Qty: 3 on 05/07/2019 by Whitney Martinez MD at [facility] Right: Wrist [employer] [id number] / / Peg Fx 2.2mm 18mm Rds Dist Volr Lck Smth Implanted:Qty: 2 on 05/07/2019 by Whitney Martinez MD at [facility] Right: Wrist [employer] [id number] DUPLICATE / / Peg Fx 2.2mm 20mm Rds Dist Volr Lck Smth Implanted:Qty: 2 on 05/07/2019 by Whitney Martinez MD at [facility] Right: Wrist [employer] [id number] / / Screw 2.7mm 13mm Nonlock Lopro Rds Dist Implanted:Qty: 1 on 05/07/2019 by Whitney Martinez MD at [facility] Right: Wrist [employer] [id number] / / Screw 2.7mm 14mm Lopro Nonster Bone Lf Implanted:Qty: 1 on 05/07/2019 by Whitney Martinez MD at [facility] Right: Wrist [employer] [id number] / / Screw 2.7mm 16mm Lopro Nonster Bone Lf Implanted:Qty: 1 on 05/07/2019 by Whitney Martinez MD at [facility] Right: Wrist [employer] [id number] / / Plate Lopro Crsslck Rds Rt Dist Volr 51 Implanted:Qty: 1 on 05/07/2019 by Whitney Martinez MD at [facility] Right: Wrist [employer] [id number] / / Modular Shell 52mm Implanted:Qty: 1 on 10/28/2020 by Marc Humphreys IV, MD at [facility] Right: Hip [employer] 07/08/2030 [id number] / / [id number] Acetabular Liner +4mm 36mm Implanted:Qty: 1 on 10/28/2020 by Marc Humphreys IV, MD at [facility] Right: Hip [employer] 06/10/2030 [id number] / / [id number] Stm Fem 150mm Hip 4 Lat Ofst Intgr-+ Implanted:Qty: 1 on 10/28/2020 by Marc Humphreys IV, MD at [facility] Right: Hip [employer] 05/21/2027 [id number] / / [id number] Head Fem +8mm /14 36mm Hip Oxnm Implanted:Qty: 1 on 10/28/2020 by Marc Humphreys IV, MD at [facility] Right: Hip [employer] 08/16/2030 [id number] / / [id number] Explanted Type Area Yard Coupler Device Identifier Shelf Expiration Date Model / Serial / Lot Screw 2.7mm 22mm Nonlock Lopro Crsslck Explanted:Qty: 1 on 05/07/2019 by Whitney Martinez MD at [facility] Right: Wrist [employer] [id number] / / Wire K 1.6mm Ss Fx Nonster Explanted:Qty: 3 on 05/07/2019 by Whitney Martinez MD at [facility] Right: Wrist [employer] [id number] / / Procedures Procedure Name Priority Date/Time Associated Diagnosis Comments COMPREHENSIVE METABOLIC PANEL STAT 10/24/2020 10:59 AM CDT Pre-op evaluation from Last 3 Months or Most Recently Relevant to Health Maintenance Results * (ABNORMAL) COMPREHENSIVE METABOLIC PANEL (10/24/2020 10:59 AM CDT) Glucose 109(H) 70 - 105 mg/dL 10/24/2020 11:23 AM CDT [facility] Sodium 136 136 - 145 mmol/L 10/24/2020 11:23 AM CDT [facility] Potassium 4.6 3.5 - 5.1 mmol/L 10/24/2020 11:23 AM CDT [facility] Chloride 103 98 - 107 mmol/L 10/24/2020 11:23 AM CDT [facility] CO2 21(L) 23 - 31 mmol/L 10/24/2020 11:23 AM CDT [facility] Calcium 10.1 8.4 - 10.4 mg/dL 10/24/2020 11:23 AM CDT [facility] Anion Gap 12 8 - 18 mmol/L 10/24/2020 11:23 AM CDT [facility] BUN 13 9.8 - 20.1 mg/dL 10/24/2020 11:23 AM CDT [facility] Creatinine 0.71 0.57 - 1.11 mg/dL 10/24/2020 11:23 AM CDT [facility] Alkaline Phosphatase 118 40 - 150 U/L 10/24/2020 11:23 AM CDT [facility] ALT 12 0 - 61 U/L 10/24/2020 11:23 AM CDT [facility] AST 14 5 - 34 U/L 10/24/2020 11:23 AM CDT [facility] Protein Total 6.5 6.4 - 8.3 gm/dL 10/24/2020 11:23 AM CDT [facility] Albumin 3.7 3.2 - 4.6 gm/dL 10/24/2020 11:23 AM CDT [facility] Bilirubin Total 0.9 0.2 - 1.2 mg/dL 10/24/2020 11:23 AM CDT [facility] eGFR by MDRD >60 >60 mL/min/1.7 3m2 10/24/2020 11:23 AM CDT [facility] eGFR by MDRD >60 >60 mL/min/1.7 3m2 10/24/2020 11:23 AM CDT [facility] Blood BLOOD SPECIMEN / Unknown Venipuncture / Unknown 10/24/2020 10:59 AM CDT 10/24/2020 11:07 AM CDT Piper Jacome CIVIL CELEBRANT-PRODUCTION SORTER LAB - CHEMIS TRY ORDERABLES [facility] [address] [place] [address] from Last 3 Months or Most Recently Relevant to Health Maintenance Advance Directives * Full Code (Latest Code Status on File) Date Activated Date Inactivated Comments 10/28/2020 2:52 PM 10/29/2020 4:45 PM * Full Code Date Activated Date Inactivated Comments 05/07/2019 4:14 PM 05/08/2019 12:45 PM * Full Code Date Activated Date Inactivated Comments 03/02/2019 2:06 PM 03/04/2019 1:20 PM * Full Code Date Activated Date Inactivated Comments 03/02/2019 1:35 PM 03/02/2019 2:06 PM Care Teams Pharmacist Helper Relationship Specialty Start Date End Date Sherif Nation MD [address] [place] [phone] PCP - General Family Medicine 02/27/19 Whitney Martinez MD Orthopedic Surgery 02/27/19
--- OUTSIDE RECORDS SUMMARY | 2024-05-31 16:52 | XMS_ITS | Encounter Summary ---
Author Organization [facility] Address [address] [place] [address] Care Team Providers Care Raw Products Director Name Role Phone Whitney Martinez MD Unavailable Sherif Nation MD Primary Care Provider +1- [phone] Reason for Visit * Reason Onset Date Comments Question 04/13/2019 Encounter Details Date Type Department Care Team (Late st Contact Info) Description 04/13/2019 Telephone [facility] Orthopedics [address] [facility], [address] [address] Whitney Martinez MD [facility] [address] [address] Question Social History Tobacco Use Types Packs/Day Years [...] encounter Miscellaneous Notes * Telephone Encounter - Camila Rodriguez - 04/13/2019 4:00 PM CST Who is calling? Self What is the reason for call? Requesting for call back in regards to surgery Expected Response from the Clinic? Call back ING CARRIER documented in this encounter Plan of Treatment Not on file documented as of this encounter Visit Diagnoses Not on filedocumented in this encounter Care Teams Raw Products Director Relationship Specialty Start Date End Date Sherif Nation MD [address] [place] [phone] PCP - General Family Medicine 02/27/19 Whitney Martinez MD Orthopedic Surgery 02/27/19 documented as of this encounter
--- OUTSIDE RECORDS SUMMARY | 2024-05-31 16:52 | XMS_ITS | Clinical Summary ---
Author Organization [facility] [employer] Address [address] [facility] [place] [address] Care Team Providers Care House Cleaner Supervisor Name Role Phone Whitney Martinez MD Unavailable Sherif Nation MD Primary Care Provider +1- [phone] Source Comments [facility] [employer] [facility],non-owned Affiliates and Associated Physician Practices is amultiple site organization consisting of ambulatory clinics and hospital sitesin [place], [place], [place] and [place]. This disclosure is being madepursuant to the Care Everywhere program and may not contain all information available regarding this patient. Last updated 18.[facility] [employer] Allergies Active Allergy Reactions Criticality Noted Date [...] Mass Index 27.1 10/28/2020 11:32 AM CDT Plan of Treatment Health Maintenance Due Date Last Done Comments BONE DENSITY TESTING 1955 COLOGUARD (AGES 45-75) - COL ON CA SCREENING 1956 COLON MONITORING 1956 COLONOSCOPY - COLON CA SCREENING 1956 CT COLONOGRAPHY - COLON CA SCREENING 1955 Colorectal Cancer Screening 1956 FIT - COLON CA SCREENING 1956 FLEX SIG - COLON CA SCREENING 1956 LIPID TESTING 1956 HEPATITIS C SCREENING 09/16/1974 DTAP/TDAP/TD VACCINES (1 - Tdap) 09/21/1975 PNEUMOCOCCAL VACCINE 50+ (1 of 1 - PCV) 2006 ZOSTER VACCINE (1 of 2) 2006 MAMMOGRAM 10/22/2017 10/23/2015 SCREENING FOR DIABETES 10/25/2023 , 05/08/2019, 03/02/2019 COVID-19 VACCINE (3 - 2023-2 5 season) 2024 07/19/2020, 06/21/2020 INFLUENZA VACCINE (#1) 2024 7, 03/09/2013, 04/25/2012 DEPRESSION SCREENING 05/09/2024 Respiratory Syncytial Virus (RSV) Vaccine Pt: or over 60 yrs (1 - 1-dose 75+ series) 09/21/2031 HEPATITIS B VACCINE Aged Out No longe r eligible based on patient's age to complete this topic HIB VACCINE Aged Out No longer eligi ble based on patient's age to complete this topic HPV VACCINE Aged Out No longer eligi ble based on patient's age to complete this topic MENINGOCOCCAL (Group B) VACCINE Aged Out No longer eligible b ased on patient's age to complete this topic MENINGOCOCCAL VACCINE Aged Out No renetta mal eligible based on patient's age to complete this topic Medical Devices Implanted Type Area Mapping Editor Device Identifier Shelf Expiration Date Model / Serial / Lot Peg Fx 2.2mm 16mm Rds Dist Volr Crsslck Implanted:Qty: 3 on 05/07/2019 by Whitney Martinez MD at [facility] Right: Wrist [employer] [id number] / / Peg Fx 2.2mm 18mm Rds Dist Volr Lck Smth Implanted:Qty: 2 on 05/07/2019 by Whitney Martinez MD at [facility] Right: Wrist [employer] [id number] DUPLICATE / / Peg Fx 2.2mm 20mm Rds Dist Volr Lck Smth Implanted:Qty: 2 on 05/07/2019 by Whitney Martinez MD at [facility] Right: Wrist [employer] [id number] / / Screw 2.7mm 13mm Nonlock Lopro Rds Dist Implanted:Qty: 1 on 05/07/2019 by Whitney Martinez MD at [facility] Right: Wrist [employer] [id number] / / Screw 2.7mm 14mm Lopro Nonster Bone Lf Implanted:Qty: 1 on 05/07/2019 by Whitney Martinez MD at [facility] Right: Wrist [employer] [id number] / / Screw 2.7mm 16mm Lopro Nonster Bone Lf Implanted:Qty: 1 on 05/07/2019 by Whitney Martinez MD at [facility] Right: Wrist [employer] [id number] / / Plate Lopro Crsslck Rds Rt Dist Volr 51 Implanted:Qty: 1 on 05/07/2019 by Whitney Martinez MD at [facility] Right: Wrist [employer] [id number] / / Modular Shell 52mm Implanted:Qty: 1 on 10/28/2020 by Marc Humphreys IV, MD at [facility] Right: Hip [employer] 07/08/2030 [id number] / / [id number] Acetabular Liner +4mm 36mm Implanted:Qty: 1 on 10/28/2020 by Marc Humphreys IV, MD at [facility] Right: Hip [employer] 06/10/2030 [id number] / / [id number] Stm Fem 150mm Hip 4 Lat Ofst Intgr-+ Implanted:Qty: 1 on 10/28/2020 by Marc Humphreys IV, MD at [facility] Right: Hip [employer] 05/21/2027 [id number] / / [id number] Head Fem +8mm /14 36mm Hip Oxnm Implanted:Qty: 1 on 10/28/2020 by Marc Humphreys IV, MD at [facility] Right: Hip [employer] 08/16/2030 [id number] / / [id number] Explanted Type Area Mapping Editor Device Identifier Shelf Expiration Date Model / Serial / Lot Screw 2.7mm 22mm Nonlock Lopro Crsslck Explanted:Qty: 1 on 05/07/2019 by Whitney Martinez MD at [facility] Right: Wrist [employer] [id number] / / Wire K 1.6mm Ss Fx Nonster Explanted:Qty: 3 on 05/07/2019 by Whitney Martinez MD at [facility] Right: Wrist [employer] [id number] / / Procedures Procedure Name Priority Date/Time [...] - 31 mmol/L 10/24/2020 11:23 AM CDT [facility] Calcium 10.1 8.4 - 10.4 mg/dL 10/24/2020 11:23 AM CDT [facility] Anion Gap 12 8 - 18 mmol/L 10/24/2020 11:23 AM CDT [facility] BUN 13 9.8 - 20.1 mg/dL 10/24/2020 11:23 AM CDT [facility] Creatinine 0.71 0.57 - 1.11 mg/dL 10/24/2020 11:23 AM CDT [facility] Alkaline Phosphatase 118 40 - 150 U/L 10/24/2020 11:23 AM CDT [facility] ALT 12 0 - 61 U/L 10/24/2020 11:23 AM CDT [facility] AST 14 5 - 34 U/L 10/24/2020 11:23 AM CDT [facility] Protein Total 6.5 6.4 - 8.3 gm/dL 10/24/2020 11:23 AM CDT [facility] Albumin 3.7 3.2 - 4.6 gm/dL 10/24/2020 11:23 AM CDT [facility] Bilirubin Total 0.9 0.2 - 1.2 mg/dL 10/24/2020 11:23 AM CDT [facility] eGFR by MDRD >60 >60 mL/min/1.7 2 10/24/2020 11:23 AM CDT [facility] eGFR by MDRD >60 >60 mL/min/1.7 2 10/24/2020 11:23 AM CDT [facility] Blood BLOOD SPECIMEN / Unknown Venipuncture / Unknown 10/24/2020 10:59 AM CDT 10/24/2020 11:07 AM CDT Piper Jacome SIGN POSTER-BLOOD BANK TECHNICIAN LAB - CHEMIS TRY ORDERABLES [facility] [address] [place] [id number] from Last 3 Months or Most Recently [...] 1:35 PM 03/02/2019 2:06 PM Care Teams House Cleaner Supervisor Relationship Specialty Start Date End Date Sherif Nation MD [address] [place] [phone] PCP - General Family Medicine 02/27/19 Whitney Martinez MD Orthopedic Surgery 02/27/19
--- OUTSIDE RECORDS SUMMARY | 2024-05-31 16:52 | XMS_ITS | Encounter Summary ---
Author Organization [facility] Address [address] [place] [address] Care Team Providers Care Farm Management Agent Name Role Phone Whitney Martinez MD Unavailable Sherif Nation MD Primary Care Provider +1- [phone] Reason for Visit * Reason Onset Date Comments Surgery Scheduling 04/24/2019 Encounter Details Date Type Department Care Team (Late st Contact Info) Description 04/24/2019 Telephone [facility] Orthopedics [address] [facility], [facility] [address] [place] [address] Whitney Martinez MD [facility] [address] [phone] Surgery Scheduling Social History Tobacco Use Types Packs/Day Years [...] encounter Miscellaneous Notes * Telephone Encounter - Leonor Lundy - 04/25/2019 9:40 AM CST Pt returned Jacob's call. Please call her D SERVICE REPRESENTATIVE * Telephone Encounter - Leonor Lundy - 04/24/2019 11:23 AM CST Who is calling? Self What is the reason for call? Pt called to schedule her surgery, her labs were normal Expected Response from the Clinic? Please call D SERVICE REPRESENTATIVE documented in this encounter Plan of Treatment Not on file documented as of this encounter Visit Diagnoses Not on filedocumented in this encounter Care Teams Farm Management Agent Relationship Specialty Start Date End Date Sherif Nation MD [address] [place] [phone] PCP - General Family Medicine 02/27/19 Whitney Martinez MD Orthopedic Surgery 02/27/19 documented as of this encounter
== END 2024-05-29 09:33 | disposition home or self-care (01) ==
LOC: ANHGOSHLAB 09:34
PROVIDERS: PCP Family Medicine; Visit Provider Nurse Practitioner Family
DX: E78.5 Hyperlipidemia, unspecified (principal); E03.9 Hypothyroidism, unspecified; I10 Essential (primary) hypertension; F41.1 Generalized anxiety disorder
CPT/HCPCS: 36415; 80053; 80061; 84439; 84443; 84480; 85025

== ENCOUNTER 2025-04-14 08:22 | Emergency (ER) | payer MEDICARE, SELFPAY ==
[2025-04-14] VITALS (27 sets, daily range): BP systolic 120–166; BP diastolic 80–110; PULSE 81–103; RESP 14–28; TEMP 36.8; O2SAT 95–100
--- NOTE | ~2025-04-14 | XR_ITS ---
Examination: XR knee RT 3V Clinical History: trauma Comparison: None Technique: 3 views right knee Findings/impression: 1. No acute fracture, dislocation, or effusion right knee. 2. Tricompartmental joint space narrowing, with marginal osteophytes. Reviewed, dictated and finalized at location R. F MARKETING OFFICER
--- NOTE | ~2025-04-14 | XR_ITS ---
Examination: XR ankle RT min 3V Clinical History: trauma, fall Comparison: 09/09/2022 Technique: 3 views right ankle Findings/impression: 1. Tiny avulsion fracture medial malleolus. 2. No other fracture identified. 3. Joint effusion. 4. Soft tissue swelling. Reviewed, dictated and finalized at location R. NSED ACUPUNCTURIST
--- NOTE | ~2025-04-14 | XR_ITS ---
Lumbar spine series Indication: Back pain Comparison: CT abdomen pelvis 04/19/2019 Technique: 3 views lumbar spine Findings: 6 nonrib-bearing lumbar-type vertebral bodies. No acute fracture identified. No listhesis. Multilevel disc disease. Moderate degenerative changes. SI joints congruent. Sacrum intact. IMPRESSION: 1. No acute findings identified but degenerative changes, alignment, and osteopenia could obscure subtle abnormality. Reviewed, dictated and finalized at location R. MIXER IMPRESSION: 1. No acute findings identified but degenerative changes, alignment, and osteo penia could obscure subtle abnormality.
--- OUTSIDE RECORDS SUMMARY | 2025-04-14 09:19 | XMS_ITS | Clinical Summary ---
Author Organization [facility] Address [address] [place] [address] Care Team Providers Care Filling Hauler Weaving Name Role Phone Sherif Nation MD Primary Care Provider +1 -[phone] Social History Tobacco Use Types Packs/Day Years Used Date Smoking Tobacco: Never Assessed Comments Unknown Sex and Gender Information Value Date Recorded Sex Assigned at Not on file Legal Sex Female 12:10 PM VELVET CUTTER Gender Identity Not on file Sexual Orientation Not on file Plan of Treatment Health Maintenance Due Date Last Done Comments Colon Cancer Screening-Colonoscopy 1955 Depression Screening 1956 Fall Risk Assessment 1955 Hepatitis C Screening 1956 Osteoporosis Screening-Bone Density Scan 1956 Hepatitis B Screening 1974 Pneumococcal vaccine 65+ (1 of 1 - PCV) 2006 Zoster Vaccine (1 of 2) 2006 Well Visit 65+ 2021 Covid-19 Vaccine (4 - 2024-2 6 season) 2025 04/18/2021, 07/19/2020, 06/21/2020 Influenza Vaccine (#1) 2025 03/12/2021 Breast Cancer Screening-Mammogram 07/04/2025 07/04/2024, 02/23/2023, 07/16/2021, Additional history exists DTaP/Tdap/Td Vaccine (2 - Td or Tdap) 10/22/2030 10/22/2020 Procedures Procedure Name Priority Date/Time Associated Diagnosis Comments SCREENING MAMMOGRAM BILATERAL W GRAYSON Schedule Routine, Read Routine (OP Routine) 07/04/2024 9:35 AM VELVET CUTTER Screening mammogram, encounter for from Last 3 Months or Most Recently Relevant to Health Maintenance Results * Screening Mammogram Bilateral W Grayson (07/04/2024 9:35 AM VELVET CUTTER) Anatomical Region Laterality Modality Breast Bilateral Mammography Narrative 07/05/2024 12:45 PM VELVET CUTTER Examination: Screening Mammogram Bilateral W Grayson: 07/04/24 Prior Study Comparisons: Relevant prior studies available at the time of interpretation were reviewed. Findings: Bilateral There is no suspicious mass, calcification, or distortion in either breast. There are scattered areas of fibroglandular density. The patient will be notified of results by letter. Impression: BI-RADS ATLAS category (overall): 2 - Benign Routine Screening Mammogram in 1 Yr is recommended for bilateral Overall Assessment: 2 - Benign us Self Screening Mammogram IMG MAMMO PROCEDURES Fi nal Result from Last 3 Months or Most Recently Relevant to Health Maintenance Insurance [facility] MEDICARE [facility] MEDICARE [facility] Care Teams Filling Hauler Weaving Relationship Specialty Start Date End Date Sherif Nation MD PCP - General 12/03/16
--- OUTSIDE RECORDS SUMMARY | 2025-04-14 09:19 | XMS_ITS | Encounter Summary ---
Author Organization [facility] Address [address] [place] [address] Care Team Providers Care Insurance Investigator Name Role Phone Whitney Martinez MD Unavailable Sherif Nation MD Primary Care Provider [phone]- [phone] Reason for Visit * Reason Onset Date Comments Question 04/13/2019 Encounter Details Date Type Department Care Team (Late st Contact Info) Description 04/13/2019 Telephone [email or web address] Orthopedics [address] [facility], [address] [address] Whitney Martinez MD [facility] [address] [address] Question Social History Tobacco Use Types Packs/Day Years Used Date Smoking Tobacco: Never Smokeless Tobacco: Never Alcohol Use Standard Drinks/Week Comments Yes 3 (1 standard drink = 0.6 oz pur e alcohol) Comments Unknown Sex and Gender Information Value Date Recorded Sex Assigned at Female 10/20/2020 3:30 PM CDT Legal Sex Female 6:07 AM MANAGER CONTRACT Gender Identity Female 10/20/2020 3:30 PM CDT Sexual Orientation Straight 10/20/2020 3: 30 PM CDT documented as of this encounter Miscellaneous Notes * Telephone Encounter - Camila Rodriguez - 04/13/2019 4:00 PM CST Who is calling? Self What is the reason for call? Requesting for call back in regards to surgery Expected Response from the Clinic? Call back GER CONTRACT documented in this encounter Plan of Treatment Not on file documented as of this encounter Visit Diagnoses Not on filedocumented in this encounter Care Teams Insurance Investigator Relationship Specialty Start Date End Date Sherif Nation MD [address] [place] [phone] PCP - General Family Medicine 02/27/19 Whitney Martinez MD Orthopedic Surgery 02/27/19 documented as of this encounter
--- OUTSIDE RECORDS SUMMARY | 2025-04-14 09:19 | XMS_ITS | Clinical Summary ---
Author Organization [facility] Address [address] [place] [address] Care Team Providers Care Steward/Stewardess Tourist Class Name Role Phone Whitney Martinez MD Unavailable Sherif Nation MD Primary Care Provider [phone]- [phone] Source Comments [facility],non-owned Affiliates and Associated Physician Practices is amultiple site organization consisting of ambulatory clinics and hospital sitesin [place], [place], [place] and [place]. This disclosure is being madepursuant to the Care Everywhere program and may not contain all information available regarding this patient. Last updated 18.[facility] Allergies Active Allergy Reactions Criticality Noted Date Comments Sulfa Drugs GI Discomfort 02/27/2019 Medications * Be aware that medications may not be up to date on this document. Alwaysverify current medications with the patient. metoprolol succinate XL 24hr (TOPROL XL) 100 MG tablet Take 100 mg by mouth 2 times daily Active lisinopril (PRINIVIL; ZESTRIL) 40 MG tablet Take 40 mg by mouth once daily Active levothyroxine (SYNTHROID) 125 MCG tablet Take 125 mcg by mouth daily before breakfast Active cyclobenzaprin e (FLEXERIL) 10 MG tablet Take 10 mg by mouth 3 times daily as needed for Muscle Spasms Active acetaminophen (TYLENOL) 325 MG tablet Take 2 (two) tablets by mouth every 6 hours as needed Maximum allowable Acetaminophen amount = 4 Grams (4000 mg) / 24 hours. 1 Active citalopram (CELEXA) 10 MG tablet Take 10 mg by mouth once daily 1 Active celecoxib (CELEBREX) 200 MG capsule TAKE 1 CAPSULE BY MOUTH TWICE DAILY 60 capsule 1 Active Active Problems Problem Noted Date Diagnosed Date Closed subcapital fracture o f femur, right, initial encounter 10/23/2020 Closed fracture of right distal radius 9 Hypertensive urgency 03/02/2019 Social History Tobacco Use Types Packs/Day Years Used Date Smoking Tobacco: Never Smokeless Tobacco: Never Alcohol Use Standard Drinks/Week Comments Yes 3 (1 standard drink = 0.6 oz pur e alcohol) every once in awhile Comments Unknown Sex and Gender Information Value Date Recorded Sex Assigned at Female 10/20/2020 3:30 PM CDT Legal Sex Female 6:07 AM CLINICAL INFORMATICS MANAGER Gender Identity Female 10/20/2020 3:30 PM CDT Sexual Orientation Straight 10/20/2020 3: 30 PM CDT Last Filed Vital Signs Vital Sign Reading Time Taken Comments Blood Pressure 132/83 10/29/2020 12:55 PM CDT Pulse 67 10/29/2020 12:55 PM CDT Temperature 36.5 C (97.7 F) 10/29/2020 10:58 AM CDT Respiratory Rate 16 10/29/2020 12:55 PM CDT Oxygen Saturation 91% 10/29/2020 10:58 AM CDT Inhaled Oxygen Concentration - - Weight 78.5 kg (173 lb) 10/28/2020 11:32 AM CDT Height 170.2 cm (5' 7) 10/28/2020 11:32 AM CDT Body Mass Index [...] MAMMOGRAM 10/22/2017 10/23/2015 SCREENING FOR DIABETES 10/25/2023 1, 05/08/2019, 03/02/2019 DEPRESSION SCREENING 05/09/2024 COVID-19 VACCINE (3 - 2024-2 6 season) 2025 07/19/2020, 06/21/2020 INFLUENZA VACCINE (#1) 2025 7, 03/09/2013, 04/25/2012 Respiratory Syncytial Virus (RSV) Vaccine Pt: or [...] complete this topic MENINGOCOCCAL (Group B) VACCINE SHARED DECISION-MAKING Aged Out No longer eligible based on patient's age to complete this topic MENINGOCOCCAL GROUPS A/C/Y/W VACCINE Aged Out No longer eligible b ased on patient's age to complete this topic Medical Devices Implanted Type Area Ripening Room Hand Device Identifier Shelf Expiration Date Model / Serial / Lot Peg Fx 2.2mm 16mm Rds Dist Volr Crsslck Implanted:Qty: 3 on 05/07/2019 by Whitney Martinez MD at [facility] Right: Wrist [employer] [id number] / / Peg Fx 2.2mm 18mm Rds Dist Volr Lck Smth Implanted:Qty: 2 on 05/07/2019 by Whitney Martinez MD at [facility] Right: Wrist [employer] [id number] DUPLICATE / / Peg Fx 2.2mm 20mm Rds Dist Volr Lck Smth Implanted:Qty: 2 on 05/07/2019 by Whitney Martinez MD at [facility] Right: Wrist [employer] [id number] / / Screw 2.7mm 13mm Nonlock Lopro Rds Dist Implanted:Qty: 1 on 05/07/2019 by Whitney Martinez MD at [facility] Right: Wrist [employer] [id number] / / Screw 2.7mm 14mm Lopro Nonster Bone Lf Implanted:Qty: 1 on 05/07/2019 by Whitney Martinez MD at [facility] Right: Wrist [employer] [id number] / / Screw 2.7mm 16mm Lopro Nonster Bone Lf Implanted:Qty: 1 on 05/07/2019 by Whitney Martinez MD at [facility] Right: Wrist [employer] [id number] / / Plate Lopro Crsslck Rds Rt Dist Volr 51 Implanted:Qty: 1 on 05/07/2019 by Whitney Martinez MD at [facility] Right: Wrist [employer] [id number] / / Modular Shell 52mm Implanted:Qty: 1 on 10/28/2020 by Marc Humphreys IV, MD at [facility] Right: Hip [employer] 07/08/2030 [id number] / / [id number] Acetabular Liner +4mm 36mm Implanted:Qty: 1 on 10/28/2020 by Marc Humphreys IV, MD at [facility] Right: Hip [employer] 06/10/2030 [id number] / / [id number] Stm Fem 150mm Hip 4 Lat Ofst Intgr-+ Implanted:Qty: 1 on 10/28/2020 by Marc Humphreys IV, MD at [facility] Right: Hip [employer] 05/21/2027 [id number] / / [id number] Head Fem +8mm 12/14 36mm Hip Oxnm Implanted:Qty: 1 on 10/28/2020 by Marc Humphreys IV, MD at [facility] Right: Hip [employer] 08/16/2030 [id number] / / [id number] Explanted Type Area Ripening Room Hand Device Identifier Shelf Expiration Date Model / Serial / Lot Screw 2.7mm 22mm Nonlock Lopro Crsslck Explanted:Qty: 1 on 05/07/2019 by Whitney Martinez MD at [facility] Right: Wrist [employer] [id number] / / Wire K 1.6mm Ss Fx Nonster Explanted:Qty: 3 on 05/07/2019 by Whitney Martinez MD at [facility] Right: Wrist [employer] [id number] / / Procedures Procedure Name Priority Date/Time [...] >60 mL/min/1.7 3m2 10/24/2020 11:23 AM CDT [facility] eGFR by MDRD >60 >60 mL/min/1.7 3m2 10/24/2020 11:23 AM CDT [facility] Blood BLOOD SPECIMEN / Unknown Venipuncture / Unknown 10/24/2020 10:59 AM CDT 10/24/2020 11:07 AM CDT Piper Jacome WOMEN'S ACTIVITIES ADVISER-HATCHERY MANAGER LAB - CHEMISTRY TREVER CHAVEZ Final Result [facility] [address] [place] [address] from Last 3 Months or Most Recently Relevant to Health Maintenance Insurance ANTH Advance Directives * Full Code (Latest Code [...] 1:35 PM 03/02/2019 2:06 PM Care Teams Steward/Stewardess Tourist Class Relationship Specialty Start Date End Date Sherif Nation MD [address] [place] [phone] PCP - General Family Medicine 02/27/19 Whitney Martinez MD Orthopedic Surgery 02/27/19
--- OUTSIDE RECORDS SUMMARY | 2025-04-14 09:19 | XMS_ITS | Encounter Summary ---
Author Organization [facility] Address [address] [place] [address] Care Team Providers Care Party Host Name Role Phone Whitney Martinez MD Unavailable Sherif Nation MD Primary Care Provider +1- [phone] Reason for Visit * Reason Onset Date Comments Surgery Scheduling 04/24/2019 Encounter Details Date Type Department Care Team (Late st Contact Info) Description 04/24/[address] [facility] Orthopedics [address] [facility], [facility] [address] [place] [address] Whitney Martinez MD [facility] [address] [address] Surgery Scheduling Social History Tobacco Use Types Packs/Day Years Used Date Smoking Tobacco: Never Smokeless Tobacco: Never Alcohol Use Standard Drinks/Week Comments Yes 3 (1 standard drink = 0.6 oz pur e alcohol) Comments Unknown Sex and Gender Information Value Date Recorded Sex Assigned at Female 10/20/2020 3:30 PM CDT Legal Sex Female 6:07 AM SORTER/ASSAY TECH Gender Identity Female 10/20/2020 3:30 PM CDT Sexual Orientation Straight 10/20/2020 3: 30 PM CDT documented as of this encounter Miscellaneous Notes * Telephone Encounter - Leonor Lundy - 04/25/2019 9:40 AM CST Pt returned Jacob's call. Please call her ER/ASSAY TECH * Telephone Encounter - Leonor Lundy R - 04/24/2019 11:23 AM CST Who is calling? Self What is the reason for call? Pt called to schedule her surgery, her labs were normal Expected Response from the Clinic? Please call ER/ASSAY TECH documented in this encounter Plan of Treatment Not on file documented as of this encounter Visit Diagnoses Not on filedocumented in this encounter Care Teams Party Host Relationship Specialty Start Date End Date Sherif Nation MD [address] [place] [phone] PCP - General Family Medicine 02/27/19 Whitney Martinez MD Orthopedic Surgery 02/27/19 documented as of this encounter
--- OUTSIDE RECORDS SUMMARY | 2025-04-14 09:19 | XMS_ITS | Encounter Summary ---
Author Organization [facility] Address [address] [facility] [address] Care Team Providers Care Rebar Bender Name Role Phone Whitney Martinez MD Unavailable Sherif Nation MD Primary Care Provider +1- [phone] Reason for Visit * Reason Onset Date Comments Surgery Rescheduled 03/06/2019 Encounter Details Date Type Department Care Team (Late st Contact Info) Description 03/06/2019 Telephone [facility] [employer] Orthopedics [address] [facility], [facility] [address] [place] [address] Whitney Martinez MD [facility] [address] [phone] Surgery Rescheduled Social History Tobacco Use Types Packs/Day Years Used Date Smoking Tobacco: Never Smokeless Tobacco: Never Alcohol Use Standard Drinks/Week Comments Yes 3 (1 standard drink = 0.6 oz pur e alcohol) Comments Unknown Sex and Gender Information Value Date Recorded Sex Assigned at Female 10/20/2020 3:30 PM CDT Legal Sex Female 6:07 AM PROPULSION ENGINEER Gender Identity Female 10/20/2020 3:30 PM CDT Sexual Orientation Straight 10/20/2020 3: 30 PM CDT documented as of this encounter Functional Status * In the past 30 days, have you wished you were or wished you could go to sleep and not wake up? Answer Date of Assessment Author No 03/07/2019 2:36 PM CDT Mary Oleary RN * In the past 30 days, have you actually had any thoughts about killing yourself? Answer Date of Assessment Author No 03/07/2019 2:36 PM CDT Mary Oleary RN documented as of this encounter Miscellaneous Notes * Telephone Encounter - Hannah Manzo - 03/09/2019 8:58 AM CDT Patient is [...] on filedocumented in this encounter Care Teams Rebar Bender Relationship Specialty Start Date End Date Sherif Nation MD [address] [place] [phone] PCP - General Family Medicine 02/27/19 Whitney Martinez MD Orthopedic Surgery 02/27/19 documented as of this encounter
--- OUTSIDE RECORDS SUMMARY | 2025-04-14 09:19 | XMS_ITS | Encounter Summary ---
Author Organization [facility] Address [address] [place] [address] Care Team Providers Care Business Process Architect Name Role Phone Whitney Martinez MD Unavailable Sherif Nation MD Primary Care Provider +1- [phone] Encounter Details Date Type Department Care Team (Late st Contact Info) Description 03/01/2019 [facility] Outpatient Visit [facility] Orthopedics - Radiology [address] [place] [address] [place] [address] Document, Scanned Social History Tobacco Use Types Packs/Day Years Used Date Smoking Tobacco: Never Smokeless Tobacco: Never Alcohol Use Standard Drinks/Week Comments Yes 3 (1 standard drink = 0.6 oz pur e alcohol) Comments Unknown Sex and Gender Information Value Date Recorded Sex Assigned at Female 10/20/2020 3:30 PM CDT Legal Sex Female 6:07 AM DIRECTOR CRAFT CENTER Gender Identity Female 10/20/2020 3:30 PM CDT Sexual Orientation Straight 10/20/2020 3: 30 PM CDT documented as of this encounter Functional Status * In the past 30 days, have you wished you were or wished you could go to sleep and not wake up? Answer Date of Assessment Author No 03/02/2019 7:54 PM CDT Enedelia Kathleen RN * In the past 30 days, have you actually had any thoughts about killing yourself? Answer Date of Assessment Author No 03/02/2019 7:54 PM CDT Enedelia Kathleen RN documented as of this encounter Plan of Treatment Not on file documented as of this encounter Visit Diagnoses Not on filedocumented in this encounter Care Teams Business Process Architect Relationship Specialty Start Date End Date Sherif Nation MD [address] [place] [phone] PCP - General Family Medicine 02/27/19 Whitney Martinez MD Orthopedic Surgery 02/27/19 documented as of this encounter
--- OUTSIDE RECORDS SUMMARY | 2025-04-14 09:19 | XMS_ITS | Clinical Summary ---
Author Organization [facility] Address [address] [place] [address] Phone Care Team Providers Care Donkey Doctor Name Role Phone Unavailable Primary Care Provider Unavailabl e Immunizations Immunization Administration Dates Next Due (SPIKEVAX) (12 YRS UP PRIMAR Y SERIES) COVID-19 VACCINE - MRNA-1273(PF) 100 MCG/0.5 ML IM SUSP 07/19/2020,06/21/2020 Social History Tobacco Use Types Packs/Day Years Used Date Smoking Tobacco: Never Assessed Comments Unknown Sex and Gender Information Value Date Recorded Sex Assigned at Not on file Legal Sex Female 11:45 AM MARKING CLERK Gender Identity Not on file Sexual Orientation Not on file Plan of Treatment Health Maintenance Due Date Last Done Comments DTAP/TDAP/TD VACCINES (1 - Tdap) 09/21/1975 COLORECTAL SCREENING 2001 Colorectal Cancer Screening 2001 FIT-DNA Q 3 years 2001 FIT/FOBT Q 1 year 2001 Flex Sig/CT Colonography Q 5 years 2001 PNEUMOCOCCAL VACCINE 50+ YEA RS (1 of 1 - PCV) 2006 ZOSTER VACCINE (1 of 2) 2006 BREAST CANCER SCREENING 10/22/2016 10/23/2015 OSTEOPOROSIS SCREENING 2021 INFLUENZA VACCINE (#1) 2024 COVID-19 Vaccine (3 - season) 2025, 06/21/2020 RSV VACCINE (60+ or ) (1 - 1-dose 75+ series) 09/21/2031 Insurance BCBS [facility]
--- NOTE | 2025-04-14 10:18 | ED_ITS ---
HPI - General Adult General Chief complaint: Back Pain/Injury Stated complaint: back pain Time Seen by Provider: 04/14/25 08:25 History of Present Illness HPI narrative: 61-year-old female presents emergency department for evaluation for multiple complaints. Patient did have a ground level fall approximately 2 weeks ago. Patient did injure her right ankle at that time. Patient did not seek follow-up at that time. Patient has been wearing a walking boot on the affected right ankle since then. Patient states the walking boot does help. Patient then injured her right knee had a separate incident and patient is wearing any brace the right knee as well. Patient began having muscle spasms of her lower back last night but patient states that she was not having any acute pain after the initial falls. Patient denies any loss of bowel or bladder control. Patient denies any associated numbness or weakness. Patient reports does have follow-up on Tuesday scheduled for the ankle injury but due to the worsening pain of the lower back she sought evaluation today. Patient denies striking head denies any loss of consciousness. Related Data Allergies Allergy/AdvReac Type Severity Reaction Status Date / Time Sulfa (Sulfonamide Allergy Unknown Nausea Verified 04/14/25 08:43 Antibiotics) Review of Systems Review of Systems: All systems reviewed & are unremarkable except as noted in HPI and below PMFSH Past Medical History Medical History Arthritis of foot, left, degenerative Closed fracture at right wrist or hand level ORIF Right radial fracture Surgical History Surgical History History of surgery on wrist History of right hip replacement Family History Family History Mother Diabetes mellitus Hypertension Sibling Diabetes mellitus Hypertension Father Family history of cardiovascular disease Acute myocardial infarction, Onset Age: 67 Family history of throat cancer Grandparent Family history of malignant neoplasm of breast Other Carcinoma of colon Social History Social History (Updated 05/29/24 @ 08:56 by Piper Nuñez MA) Social History: caffeine use Smoking status: Never smoker Alcohol intake: current Drinks per week: 4 Substance use: never Substance use type: does not use Lack of Transportation: No Lack of Food: Never True Current Housing: I Have Housing Concerned About Future Housing: No Difficulty Paying Gas/Electric Bills: No Difficulty Paying for Meds: No Currently Unemployed: No Education: High School Diploma/GED Difficulty w/ Childcare or Family Care: No Occupation/Education: retired Gender identity (if verbalized by the patient): Female Exam Narrative: APPEARANCE: Well appearing, no pain, no distress, well-nourished. HEAD: normocephalic, atraumatic. EYES: PERRLA/EOMI, conjunctivae clear. NOSE: Normal no drainage EARS:TMS clear with good light reflex. THROAT: Pharynx clear, no exudate. NECK: Supple. No adenopathy, no masses. RESPIRATORY: Airway patent, respirations nonlabored. Clear to auscultation bilaterally, no rales, rhonchi, wheezing. CARDIOVASCULAR: Regular rate and rhythm without murmurs rubs or gallops. ABDOMINAL: Soft, nontender, nondistended, normal bowel sounds MUSCULOSKELETAL: Tenderness of the right lateral ankle. NEURO: Alert. Cranial nerves II through XII intact. Good gait. Good coordination SKIN: Warm, dry. Normal Color Course Vital Signs Vital signs: Vital Signs Pulse Rate 103 H 04/14/25 08:37 Respiratory Rate 28 H 04/14/25 08:37 Blood Pressure 149/110 H 04/14/25 08:37 Pulse Oximetry 100 04/14/25 08:37 Temperature 98.2 F 04/14/25 08:40 Pulse Rate 85 04/14/25 12:43 Respiratory Rate 20 04/14/25 12:43 Blood Pressure 134/92 H 04/14/25 12:43 Pulse Oximetry 99 04/14/25 12:43 Oxygen Delivery Room Air 04/14/25 08:40 [facility] Narrative Medical decision making narrative: 61-year-old female presents emergency department for evaluation for lower back pain, right ankle pain and right knee pain. Lumbar x-ray was negative, knee x- ray was negative. Ankle x-ray does show a medial malleolus avulsion fracture. Patient is already wearing a walking boot from home and injuries approximately 2-week-old. Patient was provided additional crutches for limited weight- bearing. Patient states she does have follow-up scheduled with Orthopedics, Dr. Schmidt. Differential Diagnosis Differential Diagnosis: Knee fracture, hip fracture, lumbar fracture, sciatica, muscular strain Imaging Data Radiologist's impression: ITS Impressions Lumbar Spine X-Ray 04/14/25 11:47 IMPRESSION: 1. No acute findings identified but degenerative changes, alignment, and osteopenia could obscure subtle abnormality. Discharge Plan Discharge Clinical Impression: Avulsion fracture of medial malleolus Patient Disposition: Home Condition: Stable Instructions: Antibiotic Form, Ankle Fracture (DC), Acute Low Back Pain (ED) Additional Instructions: Crutches for nonweightbearing of the right ankle. [place] for pain control. Cyclobenzaprine as needed for muscle spasm of the lower back. Have close follow-up with Orthopedics. If you have any worsening symptoms then please call or return to the emergency department. Patient Language: Spanish Prescriptions: New cyclobenzaprine 10 mg tablet 10 mg PO BID PRN (Reason: muscle spasm) Qty: 14 0RF hydrocodone-acetaminophen 5-325 mg tablet 1 tablet PO Q12H PRN (Reason: pain) Qty: 14 0RF No Action lisinopril 40 mg tablet See Rx Instructions .ROUTE .COMPLEX Qty: 90 3RF Dose Instruction: TAKE 1 TABLET BY MOUTH DAILY Rx Instructions: TAKE 1 TABLET BY MOUTH DAILY metoprolol succinate 100 mg tablet extended release 24 hr See Rx Instructions .ROUTE .COMPLEX Qty: 180 0RF Dose Instruction: TAKE 1 TABLET BY MOUTH TWICE A DAY Rx Instructions: TAKE 1 TABLET BY MOUTH TWICE A DAY trazodone 50 mg tablet See Rx Instructions .ROUTE .COMPLEX Qty: 180 0RF Dose Instruction: TAKE 1 TO 2 TABLETS BY MOUTH EVERY NIGHT AT BEDTIME NEEDED FOR INSOMNIA Rx Instructions: TAKE 1 TO 2 TABLETS BY MOUTH EVERY NIGHT AT BEDTIME NEEDED FOR INSOMNIA- NEEDS APPOINTMENT levothyroxine 125 mcg tablet 125 mcg PO DAILY Qty: 90 0RF Rx Instructions: NEEDS APPOINTMENT FOR FURTHER REFILLS hydrochlorothiazide 12.5 mg tablet 12.5 mg PO DAILY Qty: 90 0RF Rx Instructions: NEEDS APPOINTMENT FOR FURTHER REFILLS. Follow-up/Referrals: Sherif Nation MD [Primary Care Provider, Family Practice] Buck Bingham MD [Physician, Orthopedics]
[2025-04-14] MEDS: HYDROcodone/acetaminophen (*CRX) 7.5-325 MG TABLET 1 TAB PO (11:05)
[2025-04-14] MEDS: CYCLOBENZAPRINE HCL 10 MG TABLET PO (11:05)
== END 2025-04-14 12:45 | disposition home or self-care (01) ==
PROVIDERS: Emergency Provider Emergency Medicine; PCP Family Medicine
DX: S82.51XA Displaced fracture of medial malleolus of right tibia, initial encounter for closed fracture (principal); W18.30XA Fall on same level, unspecified, initial encounter
CPT/HCPCS: 72100; 73562; 73610; 99284; A9270